=== PATIENT | female | born 1980 | race African-American/Black ===

== ENCOUNTER 2017-02-18 23:35 | Emergency (ER) | payer OTHER ==
[~2017-02-18] VITALS: Ht 165.1 cm; Wt 79.1 kg
[2017-02-19] MEDS ORDERED: NIFEDIPINE 10MG CAPSULE PO ONE (01:45)
[2017-02-19] MEDS ORDERED: HYDROCODONE/ACETAMINOPHEN 10/325MG TABLET PO ONE (01:45)
[2017-02-19 02:13] LABS: BASOPHILS % 0.5 % (0.0-2.0); EOSINOPHILS % 0.3 % (0.0-5.0); HEMATOCRIT. 39.5 % (36.0-48.0); HEMOGLOBIN. 12.6 g/dL (12.0-16.0); MEAN CORPUSCULAR HEMOGLOBIN 24.3 pg (28.0-32.0); MEAN CORPUSCULAR VOLUME 75.8 fL (81.0-99.0); MEAN PLATELET VOLUME 7.2 fl (7.4-10.4); MONOCYTES % 3.9 % (2.0-8.0); NEUTROPHILS % 78.3 % (40.0-76.0); PLATELET 385 x1000/uL (130-400); RED BLOOD CELL COUNT 5.21 mill/uL (4.2-5.4); RED CELL DISTRIBUTION WIDTH 15.5 % (11.6-14.6)
[2017-02-19 02:33] LABS: CARBON DIOXIDE 25 mEq/L (21-32); CHLORIDE 105 mEq/L (98-107); TROPONIN I < 0.02 ng/mL (0.00-0.04)
[2017-02-19 03:50] LABS: *AMPHETAMINES SCREEN URINE NEGATIVE (NEGATIVE); *BARBITURATES SCREEN URINE NEGATIVE (NEGATIVE); *BENZODIAZEPINES SCREEN URINE NEGATIVE (NEGATIVE); *COCAINE SCREEN URINE NEGATIVE (NEGATIVE); CANNABINOID URINE SCREEN NEGATIVE (NEGATIVE); METHADONE URINE SCREEN NEGATIVE (NEGATIVE); OPIATES URINE SCREEN NEGATIVE (NEGATIVE); PHENCYCLIDINE URINE SCREEN NEGATIVE (NEGATIVE)
[2017-02-19] MEDS ORDERED: ENALAPRIL 2.5MG/2ML VIAL 2ML IV SCH (04:00)
[2017-02-19 05:31] VITALS: BP 154/104
== END 2017-02-19 06:14 | disposition home or self-care (01) ==
LOC: ER 02-19 00:40
DX: I10 Essential (primary) hypertension (principal); R51 Headache; R07.9 Chest pain, unspecified
CPT/HCPCS: 36415; 71010; 80048; 80305; 84484; 85025; 85379; 93005; 96374; 99285; J3490; Z7610